=== PATIENT | male | born 1935 | race Hispanic/Latino ===

== ENCOUNTER 2019-07-25 18:40 | Inpatient (IN) | payer MEDICARE ==
[~2019-07-25] VITALS: Ht 170.2 cm; Wt 92.2 kg
[2019-07-25 19:15] LABS: BASOPHILS # (AUTO) 0.1 (0.0-0.1); BASOPHILS % 0.7 % (0.0-1.0); EOSINOPHILS # (AUTO) 0.2 (0.0-0.4); EOSINOPHILS % 2.9 % (0.0-6.0); HEMATOCRIT 39.4 % (38.2-49.6); HEMOGLOBIN 13.8 g/dL (14.0-18.0); LYMPHOCYTES # (AUTO) 0.5 (1.0-3.2); LYMPHOCYTES % 7.1 % (18.0-39.1); MEAN CORPUSCULAR HEMOGLOBIN 32.9 pg (28-32); MONOCYTES # (AUTO) 0.7 (0.2-0.8); MONOCYTES % 9.6 % (4.4-11.3); NEUTROPHILS # (AUTO) 5.8 (2.1-6.9); NEUTROPHILS % 79.4 % (38.7-80.0); PLATELET COUNT 144 x10e3/uL (140-360); RED BLOOD COUNT 4.19 x10e6/uL (4.3-5.7); RED CELL DISTRIBUTION WIDTH 13.2 % (11.7-14.4)
[2019-07-25 19:22] LABS: INR 1.23; PROTHROMBIN TIME 16.3 seconds (11.9-14.5)
[2019-07-25 19:23] LABS: PARTIAL THROMBOPLASTIN TIME 36.7 seconds (23.8-35.5)
[2019-07-25 19:29] LABS: COLOR,URINE YELLOW (YELLOW); KETONES,URINE NEGATIVE (NEGATIVE); LEUKOCYTE ESTERASE ,URINE TRACE (NEGATIVE); NITRITE,URINE NEGATIVE (NEGATIVE); PROTEIN,URINE DIPSTICK 2+ (NEGATIVE); URINE UROBILINOGEN 0.2 mg/dL (0.2 - 1)
[2019-07-25 19:30] LABS: BILIRUBIN,URINE NEGATIVE (NEGATIVE); CLARITY,URINE SL CLOUDY (CLEAR)
[2019-07-25 19:32] LABS: ALANINE AMINOTRANSFERASE 85 IU/L (0-55); ALBUMIN 3.5 g/dL (3.5-5.0); ALBUMIN/GLOBULIN RATIO 1.2 (0.8-2.0); ALKALINE PHOSPHATASE 76 IU/L (40-150); ANION GAP 11.4 mmol/L (8-16); BLOOD UREA NITROGEN 11 mg/dL (7-26); BUN/CREATININE RATIO 10 (6-25); CALCIUM 8.3 mg/dL (8.4-10.2); CARBON DIOXIDE 30 mmol/L (22-29); CHLORIDE 90 mmol/L (98-107); CREATINE KINASE 216 IU/L (30-200); CREATININE, SERUM 1.12 mg/dL (0.72-1.25); EST GLOMERULAR FILTRATION RATE > 60 ML/MIN (60-); GLUCOSE 141 mg/dL (74-118); POTASSIUM 3.4 mmol/L (3.5-5.1); SODIUM 128 mmol/L (136-145)
[2019-07-25 19:45] LABS: BACTERIA,URINE MODERATE /HPF; RBC,URINE 0-5 /HPF (0-5); WBC,URINE (MAN) 0-5 /HPF (0-5)
[2019-07-25 20:30] VITALS: BP 152/98
--- NOTE | 2019-07-25 20:30 | Diagnostic Imaging Report ---
Examination: Single AP view of the chest. COMPARISON: None. INDICATION: Chest pain, edema, wheezing for 2 months IMPRESSION: 1. Lines and Tubes: Left upper chest dual lead cardiac device, with distal tips projecting in the right atrium and right ventricle. 2. Lungs are well-inflated. Bilateral perihilar interstitial opacities consistent with mild perihilar interstitial edema. Suggestive of mild fluid overload decompensated CHF. 3. Enlarged cardiac silhouette . Central pulmonary venous congestion. 4. No acute bony abnormalities. Signed by: Dr. Jordon Thakkar M.D. on 07/25/2019 8:27 PM
[2019-07-25] MEDS ORDERED: SODIUM CHLORIDE FLUSH 10 ML SYR INJ PRN (21:30)
--- OUTSIDE RECORDS SUMMARY | 2019-07-25 21:32 | XMS REPORT ---
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 Allergies, Adverse Reactions, Alerts This patient has no known allergies or adverse reactions. Medications This patient has no known medications. Results Test Description Test Time Test Comments Text Results Atomic Results Result Comments CHEST SINGLE (NOT PORTABLE) 2019-07-25 20:27:00 [place] [id number] Patient Name: JUDSON FONG MR #: [id number] : 1935 Age/Sex: 83/M Req #: [id number] Adm Physician: Ordered by: NITESH COTO MD Report #: [id number] Location: ER Room/Bed: Procedure: [id number] DX/CHEST SINGLE (NOT PORTABLE) Exam Date: Exam Time: REPORT STATUS: Signed Examination: Single AP view of the chest. COMPARISON: Non e. INDICATION: Chest pain, edema, wheezing for 2 months IMPRESSION: 1. Lines and Tubes: Left upper chest dual lead cardiac device, with distal tips projecting in the right atrium and right ventricle. 2. Lungs are well-inflated. Bilateral perihilar interstitial opacities consistent with mild perihilar interstitial edema. Suggestive of mild fluid overload decompensated CHF. 3. Enlarged cardiac silhouette . Central pulmonary venous congestion. 4. No acute bony abnormalities. Signed by: Dr. Shantelle Thakkar M.D. on 07/25/2019 8:27 PM Dictated By: SHANTELLE ORTIZ MD 26 Transcribed By: KAMRAN on 07/25/192026 COPY TO: NITESH COTO MD
[2019-07-25] MEDS: FUROSEMIDE INJ 10 MG/ML 4 ML VIAL IV SCH (21:41)
[2019-07-25] MEDS: POTASSIUM CHLORIDE 20 MEQ TAB CR PO SCH (21:41)
--- NOTE | 2019-07-25 22:30 | NUR ---
Received patient from ER via wheelchair. Patient in stable condition, no s/s of distress or c/o pain at this time. All safety measures in place. Will continue to monitor.
--- NOTE | 2019-07-25 22:55 | NUR ---
Patient does not have list of home meds, states his daughter will bring them in the morning.
[2019-07-25 22:58] VITALS: BP 152/98
[2019-07-25 23:03] VITALS: BP 152/98
--- NOTE | 2019-07-25 23:17 | NUR ---
Paged Dr. Powers regarding patient's elevated blood pressure. Informed him that patient does take BP meds at home, but does not remember which one. Received orders for carvedilol 6.25 mg Q12, first dose now. Per Dr. Powers, he will review UA results in the morning.
[2019-07-25] MEDS: CARVEDILOL 3.125 MG TAB PO SCH (23:36)
[2019-07-26] VITALS (7 sets, daily range): BP systolic 137–157; BP diastolic 70–84
[2019-07-26 03:47] LABS: CREATINE KINASE MB 2.7 ng/mL (0-5.0)
--- NOTE | 2019-07-26 06:21 | NUR ---
H&P cc: sob HPI: 83yoM, PCP , developed SOB and peripheral edema. No cp. PMH: CAD s/p CABG 2000, s/p coronary stent 2000, HTN, HLD, PShx: CABG 2000, coronary stent 2000, appendectomy, cholecystectomy Allergies; see emr FH/Sh; no cigs; ; meds; see MAR ROS; no f/c/s/N/V/D/HUDDLESTON/vision changes/confusion/skin rash/focal limb weakness v/s revd PE anicteric ns1s2 mod bs; scattered wheezing soft nt nd 2+ leg edema B/L Scrotal edema 2 plus (nurse present) skin dry flat affect a&ox3; floyd labs/meds revd A/P: UTI- IV abx AECHF- diastolic- diuretics Pulmonary edema- IV diuretics Scrotal edema- iv diuretics Hyponatremia- check labs Hypokalemia- check labs Obesity- hab1c/lipids CAD- hx CABG and stent; cont home meds; BMI 31.8 Prop: lovenox; Dispo: f/u labs; f/u edema Shekhar Powers MD, PhD.
[2019-07-26] MEDS ORDERED: ONDANSETRON HCL INJ 2MG/ML 2ML 2 MG/ML VIAL IV PRN (06:30)
[2019-07-26] MEDS ORDERED: ACETAMINOPHEN 325 MG TAB PO PRN (06:30)
[2019-07-26] MEDS ORDERED: DOCUSATE SODIUM 100 MG CAP PO PRN (06:30)
[2019-07-26] MEDS ORDERED: SODIUM CHLORIDE 0.9% 250ML 250 ML ONE (06:38)
[2019-07-26] MEDS: CEFTRIAXONE SOD 1 GM/NS 50 ML 50 ML IV SCH (06:43)
[2019-07-26] MEDS: FAMOTIDINE 20 MG TAB PO SCH ×2 (06:43→16:58)
--- NOTE | 2019-07-26 06:55 | NUR ---
Bedside report given to day nurse. Patient awake and resting in bed, no s/s of distress or c/o pain, refusing SCDs at this time. All safety measures in place.
[2019-07-26 07:09] LABS: ANION GAP 9.6 mmol/L (8-16); BLOOD UREA NITROGEN 12 mg/dL (7-26); BUN/CREATININE RATIO 13 (6-25); CALCIUM 8.1 mg/dL (8.4-10.2); CARBON DIOXIDE 29 mmol/L (22-29); CHLORIDE 92 mmol/L (98-107); EST GLOMERULAR FILTRATION RATE > 60 ML/MIN (60-); GLUCOSE 101 mg/dL (74-118); POTASSIUM 3.6 mmol/L (3.5-5.1); SODIUM 127 mmol/L (136-145)
[2019-07-26 07:21] LABS: CHOL/HDL RATIO 2.1 (3.9-4.7)
--- NOTE | 2019-07-26 07:24 | NUR ---
Pt received in bed with eyes open. Pt is aox4 and able to verbalize needs. Denies any pain at this time. Denies SOB at this time.
[2019-07-26] MEDS ORDERED: FLOMAX0.4 MG PO (08:56)
[2019-07-26] MEDS ORDERED: XARELTO20 MG PO (08:56)
[2019-07-26] MEDS ORDERED: PANTOPRAZOLE SO20 MG PO (08:56)
[2019-07-26] MEDS ORDERED: TERAZOSIN HCL5 MG PO (08:56)
[2019-07-26] MEDS ORDERED: LISINOPRIL10 MG PO (08:56)
[2019-07-26] MEDS ORDERED: FUROSEMIDE40 MG PO (08:56)
[2019-07-26] MEDS ORDERED: HYDRALAZINE HCL25 MG PO (08:56)
[2019-07-26] MEDS ORDERED: ATORVASTATIN CA20 MG PO (08:56)
[2019-07-26] MEDS ORDERED: XANAX0.5 MG PO (08:56)
[2019-07-26] MEDS ORDERED: CARVEDILOL3.125 MG PO (08:56)
[2019-07-26] MEDS: CARVEDILOL 3.125 MG TAB PO SCH ×2 (08:58→20:48)
[2019-07-26] MEDS: FUROSEMIDE INJ 10 MG/ML 4 ML VIAL IV SCH ×2 (08:58→16:58)
[2019-07-26] MEDS: ASPIRIN 81 MG CHEW TAB PO SCH (08:58)
[2019-07-26] MEDS: LOSARTAN POTASSIUM 25 MG TAB PO SCH (08:58)
[2019-07-26] MEDS: POTASSIUM CHLORIDE 20 MEQ TAB CR PO SCH (08:59)
[2019-07-26] MEDS: ALBUTEROL/IPRATROPIUM 3 ML NEB NEB SCH ×3 (11:04→20:00)
--- NOTE | 2019-07-26 12:03 | NUR ---
Discontinuing PT services since patient is Mod I in functional mobility. Thank you. Addendum: 07/26/19 at 1204 by Avtar preston PT Amended: Links added.
[2019-07-26 12:22] LABS: CREATINE KINASE MB 2.5 ng/mL (0-5.0)
--- NOTE | 2019-07-26 14:34 | NUR ---
Nutrition Screen Note RD Recommendation for Physician: - Continue current diet per MD Plan of Care: RD following, monitoring for tolerance and adequacy Nutrition reason for involvement: Dx: CHF on admit Primary Diagnose(s): CHF PMH: CHF, no H&P available Ht: 67 in Wt: 203.2 lb BMI: 31.8 kg/m2 IBW: [address] Assessment: (07/26) 83 YOM admitted for CHF exacerbation, seen today per dx. 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 Pt reports eating well since admit. Pt reports UBW/dry wt of 180#, no wt loss noted. Pt denies any N/V/C/D. Pt reports that he eats a low Na diet at home and does not need education, his knows the restrictions and how to prepare his food. Pt and family with no questions or concerns at time of visit. Chart reviewed. Labs and meds reviewed, currently on lasix. Will continue to monitor. Current Diet: Cardiac Malnutrition Evaluation (07/26/19) The patient does not meet criteria for a specified degree of malnutrition at this time. Will re-evaluate at follow-up as appropriate. Diet Education Needs Assessment: Diet education indicated, pt declined. Diet tolerance: tolerating po Nutrition Care Level: Low Signed: Analisa Mcclellan RD, LD, [facility]
--- NOTE | 2019-07-26 16:52 | Consultation ---
DATE OF CONSULTATION: Cardiology Consultation. HISTORY OF PRESENT ILLNESS: This is an 83-year-old man with a history of coronary artery disease, status post bypass surgery in 2000 with subsequent percutaneous coronary intervention, chronic congestive heart failure, permanent pacemaker, hypertension, hyperlipidemia, who presented to the emergency department with progressively worsening lower extremity swelling and shortness of breath. His symptoms were moderate in severity, associated with exertional dyspnea, no chest pain, no associated palpitations or syncopal events, and symptoms improved with increasing his Lasix dose. The patient was only on 20 mg daily, however, this was increased recently. REVIEW OF SYSTEMS: A 12-point review of system was conducted, is negative except as stated above in the HPI. PAST MEDICAL HISTORY: As stated above in the HPI. PAST SURGICAL HISTORY: Bypass surgery, pacemaker implantation. FAMILY HISTORY: Noncontributory. SOCIAL HISTORY: No illicit drug, alcohol, or tobacco use. ALLERGIES: NO KNOWN DRUG ALLERGIES. MEDICATIONS: See medication reconciliation form. PHYSICAL EXAMINATION: VITAL SIGNS: Temperature is 96.5, heart rate 65, respirations are 20, blood pressure is 137/84, and oxygen saturation 95% on room air. GENERAL: Well-appearing, well built, no apparent distress. Alert and oriented x3. HEAD: Normocephalic, atraumatic. Eyes, the extraocular muscles are intact. Conjunctivae are clear. NECK: No JVD. No bruits. CARDIOVASCULAR: Regular rate and rhythm. No murmurs. LUNGS: Diminished breath sounds at bases. ABDOMEN: Soft, nontender, nondistended. EXTREMITIES: 2+ pitting edema. VASCULAR: Diminished pulses. NEUROLOGIC: No focal deficits. LABORATORY DATA: Reviewed. Hemoglobin is 13.8. Creatinine is 0.9. BNP is 3846. Troponin I is negative x2. Chest x-ray shows pulmonary edema. A 12-lead electrocardiogram shows ventricular paced rhythm. IMPRESSION: 1. Nsgza-vp-mektlfi congestive heart failure, unknown type. 2. Coronary artery disease. 3. History of bypass surgery. 4. Hypertension. 5. Hyperlipidemia. 6. Presence of a permanent pacemaker. RECOMMENDATIONS: The patient is volume overloaded by chest x-ray and physical examination. Continue intravenous diuretics with furosemide. Monitor in's and out's. Monitor his daily creatinine and electrolyte levels. Continue all other optimal medical therapy for his congestive heart failure. We will check a 2D echocardiogram. Derrick DO DARIANA Moore /[id number]
[2019-07-26] MEDS: ENOXAPARIN SOD INJ 40 MG/0.4 ML SYR SC SCH (16:58)
--- NOTE | 2019-07-26 19:00 | NUR ---
RECEIVED PATIENT IN BEDSIDE SHIFT REPORT. PATIENT RESTING IN BED AT THIS TIME. NO PAIN REPORTED. NO S&S OF DISTRESS NOTED. PATIENT VERBALIZED UNDERSTANDING TO CONTINUE TO USE URINAL FOR STRICT I&O MONITORING. BED LOCKED IN LOWEST POSITION, SIDE RAILS UPX2, CALL LIGHT IN REACH.
[2019-07-27] VITALS (11 sets, daily range): BP systolic 123–168; BP diastolic 64–81
[2019-07-27] MEDS: ALBUTEROL/IPRATROPIUM 3 ML NEB NEB SCH ×8 (00:20→23:50)
[2019-07-27] MEDS: CEFTRIAXONE SOD 1 GM/NS 50 ML 50 ML IV SCH (05:48)
--- NOTE | 2019-07-27 06:14 | NUR ---
IM- progress note O/N see below ROS; no f/c/s/N/V/D/HUDDLESTON/vision changes/confusion/skin rash/focal limb weakness v/s revd PE anicteric ns1s2 mod bs; scattered wheezing soft nt nd 2+ leg edema B/L Scrotal edema 2 plus (nurse present) skin dry flat affect a&ox3; floyd labs/meds revd A/P: UTI- IV abx AECHF- diastolic- diuretics Pulmonary edema- IV diuretics Scrotal edema- iv diuretics Hyponatremia- check labs Hypokalemia- check labs Obesity- hab1c/lipids CAD- hx CABG and stent; cont home meds; BMI 31.8 Prop: lovenox; Dispo: f/u labs; f/u edema 07/27 Hba1/LDL 5.9; check labs; cont care; Shekhar Powers MD, PhD.
[2019-07-27 07:33] LABS: BASOPHILS % 0.6 % (0.0-1.0); EOSINOPHILS # (AUTO) 0.2 (0.0-0.4); EOSINOPHILS % 3.4 % (0.0-6.0); HEMATOCRIT 39.3 % (38.2-49.6); HEMOGLOBIN 13.4 g/dL (14.0-18.0); LYMPHOCYTES # (AUTO) 0.6 (1.0-3.2); LYMPHOCYTES % 11.5 % (18.0-39.1); MEAN CORPUSCULAR HEMOGLOBIN 32.4 pg (28-32); MEAN CORPUSCULAR HGB CONC 34.1 g/dL (31-35); MEAN CORPUSCULAR VOLUME 95.2 fL (81-99); MONOCYTES # (AUTO) 0.7 (0.2-0.8); MONOCYTES % 13.7 % (4.4-11.3); NEUTROPHILS # (AUTO) 3.6 (2.1-6.9); NEUTROPHILS % 70.6 % (38.7-80.0); PLATELET COUNT 140 x10e3/uL (140-360); RED BLOOD COUNT 4.13 x10e6/uL (4.3-5.7); RED CELL DISTRIBUTION WIDTH 13.2 % (11.7-14.4)
[2019-07-27 07:50] LABS: CALCIUM 9.1 mg/dL (8.4-10.2); CREATININE, SERUM 1.26 mg/dL (0.72-1.25)
[2019-07-27] MEDS: FUROSEMIDE INJ 10 MG/ML 4 ML VIAL IV SCH ×2 (07:56→17:21)
[2019-07-27] MEDS: POTASSIUM CHLORIDE 20 MEQ TAB CR PO SCH (07:58)
[2019-07-27] MEDS: ASPIRIN 81 MG CHEW TAB PO SCH (07:58)
[2019-07-27] MEDS: FAMOTIDINE 20 MG TAB PO SCH ×2 (07:58→17:23)
[2019-07-27] MEDS: LOSARTAN POTASSIUM 25 MG TAB PO SCH (08:03)
[2019-07-27] MEDS: CARVEDILOL 3.125 MG TAB PO SCH ×2 (10:08→21:15)
--- NOTE | 2019-07-27 12:42 | Progress Note ---
DATE: Cardiology Progress Note SUBJECTIVE: The patient is feeling better. Still with lower extremity edema. No chest pain. OBJECTIVE: VITAL SIGNS: Temperature 96.7, heart rate is 70, respirations are 20, blood pressure is 166/80, and oxygen saturation 96% on room air. GENERAL: Well-appearing, in no apparent distress. CARDIOVASCULAR: Regular rate and rhythm. LUNGS: Clear to auscultation. ABDOMEN: Soft, nontender, and nondistended. EXTREMITIES: 2+ edema. I's and O's show 2.3 negative balance. CARDIOVASCULAR MEDICATIONS: Reviewed. LABORATORY DATA: Reviewed. Creatinine is 1.26. Echocardiogram showed left ventricular ejection fraction of less than 20%, mildly dilated right ventricle, and moderate mitral regurgitation. Telemetry shows ventricular paced rhythm. IMPRESSION: 1. Fxyao-kf-ubjgpun systolic congestive heart failure. 2. Coronary artery disease, status post coronary artery bypass graft surgery and percutaneous coronary intervention. 3. Hypertension. 4. Hyperlipidemia. 5. Volume overload. 6. History of permanent pacemaker. RECOMMENDATIONS: The patient remains volume overloaded. Continue intravenous diuretics. Titrate his heart failure medications for better blood pressure control. Continue to monitor in's and out's and daily creatinine levels. Correct all electrolyte levels. Echocardiogram showed severely depressed ventricular systolic function. The patient may need a coronary angiography. We will interrogate his device. Derrick Moore DO BM/MODL /[id number]
--- NOTE | 2019-07-27 13:10 | NUR ---
Patient has been using the urinal as instructed, but at times forgets and pours his urine into the toilet. CHF education channel explained to patient. Will cont to monitor for sob abd wheezing, which has improved after he got up this morning.
[2019-07-27] MEDS ORDERED: ONDANSETRON HCL 4 MG ORAL DISINTEGRATING TAB PO PRN (15:00)
[2019-07-27] MEDS: ENOXAPARIN SOD INJ 40 MG/0.4 ML SYR SC SCH (17:21)
--- NOTE | 2019-07-27 19:00 | NUR ---
RECEIVED BEDSIDE SHIFT REPORT FROM PREVIOUS NURSE. CALL LIGHT WITHIN REACH. PATIENT IN BED. PATIENT IN NO PAIN OR DISTRESS
[2019-07-28] VITALS (8 sets, daily range): BP systolic 138–163; BP diastolic 69–86
[2019-07-28] MEDS: ALBUTEROL/IPRATROPIUM 3 ML NEB NEB SCH ×5 (03:20→19:50)
[2019-07-28] MEDS: CEFTRIAXONE SOD 1 GM/NS 50 ML 50 ML IV SCH (06:00)
--- NOTE | 2019-07-28 07:10 | NUR ---
GAVE BEDSIDE SHIFT TO ONCOMING NURSE. PATIENT IN BED. CALL LIGHT WITHIN REACH. PATIENT IN NO PAIN OR DISTRESS. PATIENT IS A&OX3 AND AMBULATES.
--- NOTE | 2019-07-28 07:10 | NUR ---
TALKED TO DR. DELCID ABOUT PATIENT STILL VOMITING AND PAIN IN HIS THROAT. DR. DELCID ORDERED SCOPOLAMINE PATCH.
[2019-07-28] MEDS: FUROSEMIDE INJ 10 MG/ML 4 ML VIAL IV SCH ×2 (07:59→17:09)
[2019-07-28] MEDS: FAMOTIDINE 20 MG TAB PO SCH ×2 (07:59→17:09)
[2019-07-28] MEDS: ASPIRIN 81 MG CHEW TAB PO SCH (07:59)
[2019-07-28] MEDS: POTASSIUM CHLORIDE 20 MEQ TAB CR PO SCH (08:01)
--- NOTE | 2019-07-28 08:01 | NUR ---
IM- progress note O/N see below ROS; no f/c/s/N/V/D/HUDDLESTON/vision changes/confusion/skin rash/focal limb weakness v/s revd PE anicteric ns1s2 mod bs; scattered wheezing soft nt nd 2+ leg edema B/L Scrotal edema 2 plus (nurse present) skin dry flat affect a&ox3; floyd labs/meds revd A/P: UTI- IV abx AECHF- diastolic- diuretics Pulmonary edema- IV diuretics Scrotal edema- iv diuretics Hyponatremia- check labs Hypokalemia- check labs Obesity- hab1c/lipids CAD- hx CABG and stent; cont home meds; BMI 31.8 Prop: lovenox; Dispo: f/u labs; f/u edema 07/27 Hba1/LDL 5.9; check labs; cont care; 07/28 VINICIO- check renal fn; Severe Sysotlic CHF with diastolic CHF, LVEF 20%; would benefit from C prior to d/c. Shekhar Powers MD, PhD.
[2019-07-28 08:42] LABS: ANION GAP 14.9 mmol/L (8-16); CALCIUM 9.6 mg/dL (8.4-10.2); CREATININE, SERUM 1.2 mg/dL (0.72-1.25); POTASSIUM 3.9 mmol/L (3.5-5.1)
[2019-07-28] MEDS: LOSARTAN POTASSIUM 25 MG TAB PO SCH (09:04)
[2019-07-28] MEDS: CARVEDILOL 3.125 MG TAB PO SCH ×2 (09:05→21:16)
[2019-07-28] MEDS: ENOXAPARIN SOD INJ 40 MG/0.4 ML SYR SC SCH (17:09)
--- NOTE | 2019-07-28 18:30 | Progress Note ---
DATE: Cardiology Progress Note SUBJECTIVE: The patient is feeling better. Less short of breath. Swelling in his legs has improved. OBJECTIVE: VITAL SIGNS: Temperature is 97.3, heart rate is 62, respirations are 18, blood pressure is 130/77, and oxygen saturation 98% on room air. GENERAL: Well appearing, in no apparent distress. CARDIOVASCULAR: Regular rate and rhythm. LUNGS: Diminished breath sounds at bases. ABDOMEN: Soft, nontender, nondistended. EXTREMITIES: 2+ pitting edema. CARDIOVASCULAR MEDICATIONS: Reviewed. LABORATORY DATA: Reviewed. Creatinine is 1.2. IMPRESSION: 1. Zavle-pn-nfkiwjr systolic congestive heart failure. 2. Coronary artery disease, status post bypass surgery and percutaneous coronary intervention. 3. Hypertension. 4. Hyperlipidemia. 5. Presence of a permanent pacemaker. RECOMMENDATIONS: The patient remains volume overloaded. Continue intravenous diuretics. Creatinine is stable. Resume and continue all optimal medical therapy for his heart failure. The patient has a new reduction in his left ventricular systolic function and may need a coronary angiography, which will take place tomorrow. DO FELISHA Santiago/MODL /[id number]
--- NOTE | 2019-07-28 19:00 | NUR ---
RECEIVED BEDSIDE SHIFT REPORT FROM PREVIOUS NURSE. CALL LIGHT WITHIN REACH. PATIENT IN THE SHOWER. PATIENT IN NO PAIN OR DISTRESS.
[2019-07-29] VITALS (7 sets, daily range): BP systolic 151–168; BP diastolic 79–89
--- NOTE | 2019-07-29 03:04 | NUR ---
DID HOURLY ROUNDING AND PATIENT IS ASLEEP IN BED
[2019-07-29] MEDS: ALBUTEROL/IPRATROPIUM 3 ML NEB NEB SCH ×6 (03:15→23:33)
[2019-07-29] MEDS: CEFTRIAXONE SOD 1 GM/NS 50 ML 50 ML IV SCH (06:18)
--- NOTE | 2019-07-29 07:10 | NUR ---
BEDSIDE REPORT GIVEN. FAMILY AT BEDSIDE
[2019-07-29] MEDS: FAMOTIDINE 20 MG TAB PO SCH ×2 (07:30→16:30)
--- NOTE | 2019-07-29 07:38 | NUR ---
GAVE BEDSIDE SHIFT REPORT TO ONCOMING NURSE. CALL LIGHT WITHIN REACH. PATIENT IN BED.
--- NOTE | 2019-07-29 08:13 | NUR ---
DR WELSH TO SEE PT. PT TO GO FOR ANGIOGRAM AND HEART CATH LATER TODAY
[2019-07-29] MEDS: LOSARTAN POTASSIUM 25 MG TAB PO SCH (09:00)
[2019-07-29] MEDS: FUROSEMIDE INJ 10 MG/ML 4 ML VIAL IV SCH ×2 (09:00→17:00)
[2019-07-29] MEDS: ASPIRIN 81 MG CHEW TAB PO SCH (09:00)
[2019-07-29] MEDS: CARVEDILOL 3.125 MG TAB PO SCH ×2 (09:00→20:55)
[2019-07-29] MEDS: POTASSIUM CHLORIDE 20 MEQ TAB CR PO SCH (09:28)
--- NOTE | 2019-07-29 10:18 | NUR ---
IM- progress note O/N see below ROS; no f/c/s/N/V/D/HUDDLESTON/vision changes/confusion/skin rash/focal limb weakness v/s revd PE anicteric ns1s2 mod bs; scattered wheezing soft nt nd 2+ leg edema B/L Scrotal edema 2 plus (nurse present) skin dry flat affect a&ox3; floyd labs/meds revd A/P: UTI- IV abx AECHF- diastolic- diuretics Pulmonary edema- IV diuretics Scrotal edema- iv diuretics Hyponatremia- check labs Hypokalemia- check labs Obesity- hab1c/lipids CAD- hx CABG and stent; cont home meds; BMI 31.8 Prop: lovenox; Dispo: f/u labs; f/u edema 07/27 Hba1/LDL 5.9; check labs; cont care; 07/28 VINICIO- check renal fn; Severe Sysotlic CHF with diastolic CHF, LVEF 20%; would benefit from LHC prior to d/c. 07/29 LHC pending; Shekhar Powers MD, PhD.
--- NOTE | 2019-07-29 15:25 | NUR ---
IV PLACED OF LEFT WRIST. PT TOLERATES WELL.
--- NOTE | 2019-07-29 15:55 | NUR ---
PT TO SUPERVISOR TILE AND MOTTLE VIA BED
[2019-07-29] MEDS ORDERED: MIDAZOLAM HCL 2 MG/2 ML VIAL ONE (16:21)
[2019-07-29] MEDS ORDERED: LIDOCAINE HCL 2% LOCAL 20 ML VIAL ONE (16:22)
[2019-07-29] MEDS ORDERED: FENTANYL CITRATE/PF 100MCG/2 ML INJ ONE (16:22)
[2019-07-29] MEDS ORDERED: IOPAMIDOL 370 MG/ML 200 ML INFUS..BTL INJ ONE (16:22)
[2019-07-29] MEDS ORDERED: SODIUM CHLORIDE 0.9% 1000ML 1,000 ML ONE (16:22)
[2019-07-29] MEDS ORDERED: HEPARIN SOD/SOD CHLORIDE 2,000 ML ONE (16:22)
--- NOTE | 2019-07-29 16:51 | Progress Note ---
DATE: Cardiology progress note. SUBJECTIVE: The patient is feeling better and less short of breath. OBJECTIVE: VITAL SIGNS: Temperature 96.6, heart rate 63, respirations 18, blood pressure is 151/81, and ox saturation 98% on room air. GENERAL: Well appearing in no apparent distress. CARDIOVASCULAR: Regular rate and rhythm. LUNGS: Clear to auscultation. ABDOMEN: Soft, nontender, and nondistended. EXTREMITIES: 1+ edema. CARDIOVASCULAR MEDICATIONS: Reviewed. LABORATORY DATA: Reviewed. Creatinine is 1.2 yesterday. No current creatinine. ASSESSMENT: 1. Srxjc-kf-yldwaic systolic congestive heart failure. 2. Coronary artery disease status post bypass surgery and percutaneous coronary intervention. 3. Hypertension. 4. Hyperlipidemia. 5. Presence of a permanent pacemaker. PLAN: The patient still remains volume overloaded. Continue intravenous diuretics. His creatinine is improved and stable. Continue optimal medical therapy for his heart failure. The patient will require coronary angiography and graft angiography given his new drop in left ventricular systolic function. Risks, benefits, and alternatives were discussed with the patient. He agrees to proceed. Derrick Moore DO BM/MODL /[id number]
[2019-07-29] MEDS: ENOXAPARIN SOD INJ 40 MG/0.4 ML SYR SC SCH (17:00)
--- NOTE | 2019-07-29 17:20 | NUR ---
PT BACK FROM PROCEDURE. ANGIOSEAL DRY AND INTACT, PT AWARE LEG MUST STAY STRAIGHT TILL 1900
--- NOTE | 2019-07-29 17:30 | NUR ---
RT HAND SLIGHTLY COOLER THAN LT. PT REMAIN FLAT INSTRUCTED
--- NOTE | 2019-07-29 19:20 | NUR ---
NO CHANGES AT THIS TIME ANGIOSEAL REMAINS DRY AND INTACT
--- NOTE | 2019-07-29 19:23 | NUR ---
RECEIVED BEDSIDE SHIFT REPORT FROM PREVIOUS NURSE. CALL LIGHT WITHIN REACH. PATIENT IN BED. SON AT BEDSIDE.
--- NOTE | 2019-07-29 23:42 | Operative Report ---
DATE OF PROCEDURE: SURGEON: Derrick Moore DO PROCEDURES PERFORMED: 1. Conscious sedation, 26 minutes. 2. Selective coronary angiography x2. 3. Selective graft angiography x1. 4. Left heart catheterization. 5. Left ventriculography. PREPROCEDURE DIAGNOSIS: Severe systolic congestive heart failure. POSTPROCEDURE DIAGNOSIS: Severe systolic congestive heart failure. ESTIMATED BLOOD LOSS: Less than 20 mL. SPECIMENS REMOVED: None. PROCEDURE IN DETAIL: After informed consent was obtained, the patient was brought to the cardiac catheterization laboratory in a fasting and nonsedated state. Bilateral groins were prepped and draped in the usual sterile fashion. 2% lidocaine was infiltrated over the right anterior groin for local anesthesia. Using micropuncture needle, the right common femoral artery was accessed via modified Seldinger technique and a 5-Azeri sheath was placed. Next, diagnostic coronary angiography and left internal mammary angiography were performed. Next, aortic valve was crossed and left ventriculography was performed. The patient tolerated the procedure well with no immediate complications and was transferred to his room in stable condition. FINDINGS: 1. Left main coronary artery is patent. 2. The proximal LAD is occluded. 3. The ramus intermedius coronary artery is patent with luminal irregularities. 4. Left circumflex coronary provides 3 obtuse marginal vessels. There is a proximal circumflex stent that is patent with mild disease. 5. The right coronary artery is a dominant vessel and provides posterior lateral and posterior descending coronary artery. There is a proximal RCA stent, which is patent. 6. There is a left internal mammary artery graft that is patent and is seen anastomosed to the mid LAD, which then has a jump graft to a diagonal branch, which also was patent. The LAD itself is small and diffusely diseased. 7. Left ventriculography revealed an ejection fraction of 20% to 25% with severe global hypokinesis. The end-diastolic pressure was 25-30 mmHg with no aortic valve gradient present upon pullback. IMPRESSION: 1. Coronary artery disease. 2. Patent left internal mammary artery graft. 3. Patent stents in the left circumflex and right coronary arteries. 4. Severe cardiomyopathy. RECOMMENDATIONS: Continue medical therapy for his heart failure. Derrick Moore DO BM/MODL /[id number]
[2019-07-30] VITALS: BP 156/86
[2019-07-30] MEDS: ALBUTEROL/IPRATROPIUM 3 ML NEB NEB SCH ×2 (02:55→07:05)
[2019-07-30 04:00] VITALS: BP 168/77
--- NOTE | 2019-07-30 04:50 | NUR ---
PATIENT COMPLAINING OF NUMBNESS IN LEFT EAR AND LATERAL SIDE OF THE LEFT FOOT.
--- NOTE | 2019-07-30 04:54 | NUR ---
CALLED AND LEFT A MESSAGE FOR DR. WELSH ABOUT THE PATIENT COMPLAINING ON NUMBNESS IN HIS LEFT EAR AND LEFT LATERAL FOOT.
--- NOTE | 2019-07-30 04:57 | NUR ---
DR. WELSH CALLED BACK AND WAS TOLD ABOUT THE NUMBNESS AND HE SAID IT MOST LIKELY BE NOTHING AND DO NOT DO ANYTHING.
[2019-07-30] MEDS: CEFTRIAXONE SOD 1 GM/NS 50 ML 50 ML IV SCH (05:55)
--- NOTE | 2019-07-30 07:10 | NUR ---
GAVE BEDSIDE SHIFT REPORT TO ONCOMING NURSE. CALL LIGHT WITHIN REACH. PATIENT SITTING AT THE END OF THE BED. PATIENT IS A&OX3
--- NOTE | 2019-07-30 07:25 | NUR ---
D/C summary Principal Dx: CAD UTI- IV abx AECHF- diastolic- diuretics Pulmonary edema- IV diuretics Scrotal edema- iv diuretics Hyponatremia- check labs Hypokalemia- check labs PreDM Hba1c 5.9, LDL 30 Obesity- hab1c/lipids Secondary Dx: CAD- hx CABG and stent; cont home meds; BMI 31.8 Prop: lovenox; Dispo: f/u labs; f/u edema 07/27 Hba1/LDL 5.9/30; check labs; cont care; 07/28 VINICIO- check renal fn; Severe Sysotlic CHF with diastolic CHF, LVEF 20%; would benefit from LHC prior to d/c. 07/29 LHC pending= patent REILLY and patent stent. d.c home f/u pcp 1 week and cardiology 2 weeks stable d/C >35mins Shekhar Powers MD, PhD.
[2019-07-30] MEDS ORDERED: Valsartan/Sacubitril 24MG/26MG PO (07:27)
[2019-07-30 07:51] VITALS: BP 154/78
[2019-07-30 08:11] VITALS: BP 154/78
[2019-07-30] MEDS ORDERED: VALSARTAN/SACUBITRIL 24MG/26MG 1 EA TAB PO SCH (09:00)
[2019-07-30] MEDS: FUROSEMIDE INJ 10 MG/ML 4 ML VIAL IV SCH (09:16)
[2019-07-30] MEDS: ASPIRIN 81 MG CHEW TAB PO SCH (09:16)
[2019-07-30] MEDS: FAMOTIDINE 20 MG TAB PO SCH (09:16)
[2019-07-30] MEDS: CARVEDILOL 3.125 MG TAB PO SCH (09:17)
[2019-07-30] MEDS: POTASSIUM CHLORIDE 20 MEQ TAB CR PO SCH (09:17)
--- NOTE | 2019-07-30 09:30 | NUR ---
The pt's iv was removed and discharged home in the care of his son. The pt. was provided scripts and follow up instructions prior to escorting to private car.
== END 2019-07-30 10:06 | disposition home or self-care (01) | DRG 286 ==
LOC: ER 18:40 → ERHOLD 21:19 → MED/SURG 22:25 → OBSVTOIN 07-27 10:15
PROVIDERS: ADMIT Internal Medicine; ATTEND Internal Medicine
PROC: 4A023N7 Measurement of Cardiac Sampling and Pressure, Left Heart, Percutaneous Approach (ICD-10-PCS; principal; 2019-07-29)
PROC: B2111ZZ Fluoroscopy of Multiple Coronary Arteries using Low Osmolar Contrast (ICD-10-PCS; 2019-07-29)
PROC: B2151ZZ Fluoroscopy of Left Heart using Low Osmolar Contrast (ICD-10-PCS; 2019-07-29)
PROC: B2181ZZ Fluoroscopy of Left Internal Mammary Bypass Graft using Low Osmolar Contrast (ICD-10-PCS; 2019-07-29)
DX: I13.0 Hypertensive heart and chronic kidney disease with heart failure and stage 1 through stage 4 chronic kidney disease, or unspecified chronic kidney disease (principal); I50.43 Acute on chronic combined systolic (congestive) and diastolic (congestive) heart failure; N39.0 Urinary tract infection, site not specified; N17.9 Acute kidney failure, unspecified; E87.1 Hypo-osmolality and hyponatremia; E87.70 Fluid overload, unspecified; E78.5 Hyperlipidemia, unspecified; Z68.31 Body mass index [BMI] 31.0-31.9, adult; E87.6 Hypokalemia; Z95.1 Presence of aortocoronary bypass graft; Z98.61 Coronary angioplasty status; Z95.0 Presence of cardiac pacemaker; I25.708 Atherosclerosis of coronary artery bypass graft(s), unspecified, with other forms of angina pectoris; I44.1 Atrioventricular block, second degree; I83.93 Asymptomatic varicose veins of bilateral lower extremities; N18.3 Chronic kidney disease, stage 3 (moderate); I48.0 Paroxysmal atrial fibrillation; Z79.01 Long term (current) use of anticoagulants; E78.00 Pure hypercholesterolemia, unspecified; E66.9 Obesity, unspecified
CPT/HCPCS: 36415; 71045; 80048; 80053; 80061; 81001; 82550; 82553; 82948; 83036; 83735; 83880; 84484; 85025; 85610; 85730; 93005; 93306; 93458; 94640; 94664; 99152; 99153; 99284; G0378; J0696; J1650; J1940; J2001; J2250; J3010; J7030; J7050; Q9967